=== PATIENT | male | born 1990 | race Caucasian/White ===

== ENCOUNTER 2024-02-20 16:13 | Emergency (ER) | payer MEDICAID ==
[~2024-02-20] VITALS: Ht 180.3 cm; Wt 114.0 kg
[2024-02-20 16:20] VITALS: O2SAT 99
[2024-02-20 16:28] VITALS: BP 146/93; PULSE 100; RESP 16; TEMP 98.6; O2SAT 97
== END 2024-02-20 20:17 | disposition left against medical advice (07) ==
LOC: ER 16:13
DX: M25.561 Pain in right knee (principal); Z53.21 Procedure and treatment not carried out due to patient leaving prior to being seen by health care provider